=== PATIENT | female | born 1985 | race African-American/Black ===

== ENCOUNTER → 2018-10-13 | Outpatient (CLI) | payer OTHER ==
--- NOTE | 2018-10-14 10:08 | XR ---
EXAMINATION TYPE: XR chest 2V DATE OF EXAM: 10/13/2018 COMPARISON: NONE HISTORY: Tuberculosis TECHNIQUE: Frontal and lateral views of the chest are obtained. FINDINGS: There is no focal air space opacity, pleural effusion, or pneumothorax seen. The cardiac silhouette size is within normal limits. The osseous structures are intact. IMPRESSION: No acute cardiopulmonary process.
== END | disposition home or self-care (01) ==
LOC: RADXRMAIN 17:03
PROVIDERS: ATTEND Dermatology MOHS-Micrographic Surgery
DX: Z01.818 Encounter for other preprocedural examination (principal)
CPT/HCPCS: 71046